=== PATIENT | female | born 1990 | race Caucasian/White ===

== ENCOUNTER 2016-12-31 12:51 | Emergency (ER) | payer OTHER ==
[~2016-12-31] VITALS: Ht 157.5 cm; Wt 50.0 kg
[2016-12-31 13:04] VITALS: BP 114/76; PULSE 75; RESP 18; TEMP 98.1; O2SAT 98
[2016-12-31] MEDS ORDERED: METH5TAB PO (13:12)
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
== END 2016-12-31 14:20 | disposition home or self-care (01) ==
LOC: NEPC 12:51
DX: R53.83 Other fatigue (principal); Z04.1 Encounter for examination and observation following transport accident; Z72.0 Tobacco use
CPT/HCPCS: 99283